=== PATIENT | male | born 1945 | race Caucasian/White ===

== ENCOUNTER 2018-02-15 12:01 | Day surgery (SDC) | payer MEDICARE ==
[2018-02-14 08:44] VITALS: BMI 27.6
[~2018-02-15 12:01] MED LIST: LACTATED RINGERS 1,000 ML IV SCH; LIDOCAINE 1% 20 ML VIAL (10MG/ML) FOR IV START INTRADERMA PRN
[2018-02-15 12:06] VITALS: TEMP 98.3
[2018-02-15] MEDS ORDERED: LACTATED RINGERS 1,000 ML IV ONE (12:07)
[2018-02-15] MEDS ORDERED: ONDANSETRON 4 MG/2 ML VIAL IVP ONE (12:37)
[2018-02-15] MEDS ORDERED: GLYCOPYRROLATE 0.2 MG/ML 2 ML VIAL ONE (12:49)
[2018-02-15] MEDS ORDERED: PROPOFOL 10 MG/ML 20 ML VIAL IV ONE (12:49)
--- NOTE | 2018-02-15 13:20 | P.OP ---
Date of Procedure: 02/15/18 Preoperative Diagnosis: Screening for colon cancer Postoperative Diagnosis: Moderate diverticulosis. Mild radiation proctitis. Procedure(s) Performed: Screening colonoscopy Anesthesia: MAC Surgeon: Solomon Olvera Estimated Blood Loss (ml): 0 Pathology: none sent Condition: stable Disposition: same day Indications for Procedure: Screening for colon cancer Operative Findings: Moderate diverticulosis. Mild radiation proctitis. Description of Procedure: With the patient in the left lateral position rectal digital examination was normal. There no palpable masses. Prostate was absent. The video colonoscope was inserted transanally and advanced all the way to the cecum which was entered without visualized as was the ileocecal valve and appendiceal orifice. The mucosa were thoroughly examined. Her graft findings as above. No polyps neoplasms or any mucosal other abnormalities were noted. The patient tolerated procedure well without any evident complication. Recommendation may resume his normal diet. At his age I don't think a follow- up screening colonoscopy is indicated.
[2018-02-15 13:47] VITALS: BP 130/77; PULSE 78; RESP 16
== END 2018-02-15 13:57 | disposition home or self-care (01) ==
LOC: ORWHC2ENDO 12:01
PROVIDERS: ATTEND Surgery
DX: K57.30 Diverticulosis of large intestine without perforation or abscess without bleeding (principal); Z90.79 Acquired absence of other genital organ(s); Z85.46 Personal history of malignant neoplasm of prostate; K62.7 Radiation proctitis; M19.90 Unspecified osteoarthritis, unspecified site; Z80.0 Family history of malignant neoplasm of digestive organs; Z79.899 Other long term (current) drug therapy
CPT/HCPCS: 45378; J2405; J2704

== ENCOUNTER → 2019-10-16 | Outpatient (CLI) | payer MEDICARE ==
--- NOTE | 2019-10-16 12:03 | ECHOS ---
STRESS ECHOCARDIOGRAM DATE OF SERVICE: 10/16/2019 INDICATIONS: Chest pain. MEDICATIONS: BASELINE HEART RATE: 61 BASELINE BLOOD PRESSURE: 124/61 MAXIMUM HEART RATE: 136 MAXIMUM BLOOD PRESSURE: 173/96 85% MPHR: 122 100% MPHR: 144 METS: 8.7 MAXIMUM STAGE REACHED: III TOTAL EXERCISE TIME: 7 minutes 15 seconds CLINICAL INFORMATION: Baseline rhythm is sinus mechanism, rate 61, RSR prime. Baseline blood pressure 124/61 mmHg. Patient exercised on Rory protocol for 7 minute 15 seconds reaching a peak rate 136 beats per minute which is equal to 94% maximum predicted heart rate. Peak blood pressure 173/96 mmHg. Test was terminated secondary to fatigue. There was no chest pain. Electrocardiograph monitoring revealed rare PVCs in recovery. There was no evidence of diagnostic ischemic ST deviation. Baseline echocardiogram revealed normal wall thickening and motion. At peak exercise, there was normal wall motion augmentation with no hypokinesis or dyskinesis. CONCLUSION: 1. Good exercise tolerance with normal electrocardiograph response to exercise. 2. Normal stress echocardiogram with no evidence of stress induced ischemia. MMODL / IJN: [id number] /
== END | disposition home or self-care (01) ==
LOC: RADNMMAIN 09:17
PROVIDERS: ATTEND Internal Medicine
DX: R07.89 Other chest pain (principal); R00.2 Palpitations
CPT/HCPCS: 93351

== ENCOUNTER → 2022-04-24 | Outpatient (CLI) | payer MEDICARE ==
--- NOTE | 2022-04-24 09:53 | FL ---
EXAMINATION TYPE: FL barium swallow DATE OF EXAM: 04/24/2022 CLINICAL HISTORY: History of dysphasia and reflux, epigastric pain. Some improvement on reflux medica tion. History of seasonal allergies. TECHNIQUE: A double contrast esophagram is performed utilizing air and barium. A total of 23 second s of fluoroscopic time was utilized during procedure and 33 images obtained COMPARISON: None FINDINGS: The esophagus shows normal motility and emptying into the stomach. No proximal diverticulum . No evidence of fixed hiatal hernia or stricture noted. No significant gastroesophageal reflux was seen during real time performance of this study. IMPRESSION: No significant abnormality is seen to account for patient's symptoms.
== END | disposition home or self-care (01) ==
LOC: RADUSWWP 08:49
PROVIDERS: ATTEND Internal Medicine
DX: R13.10 Dysphagia, unspecified (principal)
CPT/HCPCS: 74220

== ENCOUNTER 2022-06-25 16:20 | Emergency (ER) | payer MEDICARE ==
[2022-06-25] MEDS ORDERED: RABIES IMMUNE GLOB 300 UNIT/ML 1 ML VIAL IM ONE (17:04)
--- NOTE | 2022-06-25 17:08 | ED ---
General Adult HPI - General Chief complaint: Animal Bite Stated complaint: Bat Bite Time Seen by Provider: 06/25/22 16:43 Source: patient Mode of arrival: ambulatory Limitations: no limitations - History of Present Illness Initial comments: Patient is a 68-year-old male presenting with chief complaint of bat bite. Patient states that 3 days ago he was getting a bat out of his [employer], when he was carrying the bat and outside inside a bag, he felt a bite to his right third finger. Patient has never been vaccinated against rabies. He received a tetan us shot a few days ago. No redness, swelling, warmth, tenderness, discharge, fever, chills, red streaking up the finger, pain or loss of range of motion, numbness, tingling, nausea, vomiting, abdominal pain, chest pain, shortness of breath, headache, vision or hearing changes. - Related Data Home Medications Medication Instructions Recorded Confirmed Meloxicam [Mobic] 7.5 mg PO DAILY 07/29/15 02/14/18 Naproxen Sodium [Aleve] 220 mg PO Q12HR 07/29/15 02/14/18 Allergies Allergy/AdvReac Type Severity Reaction Status Date / Time No Known Allergies Allergy Verified 06/25/22 16:40 Review of Systems ROS Statement: Those systems with pertinent positive or pertinent negative responses have been documented in the HPI. ROS Other: All systems not noted in ROS Statement are negative. Past Medical History Past Medical History: Cancer, Osteoarthritis (OA) Additional Past Medical History / Comment(s): prostate cancer 2013 with sx, sinus/allergies, History of Any Multi-Drug Resistant Organisms: None Reported Past Surgical History: Back Surgery, Hernia Repair, Joint Replacement, Prostate Surgery Additional Past Surgical History / Comment(s): 2013 Robotic radical prostatectomy, BILAT TKA, surg. on bilateral great toes-bunionectomy with pins, inguinal hernia repair in his 20's-unsure which side., SINUS SX Past Anesthesia/Blood Transfusion Reactions: Postoperative Nausea & Vomiting (PONV) Additional Past Anesthesia/Blood Transfusion Reaction / Comment(s): Pt has never recieved blood. Past Psychological History: No Psychological Hx Reported Smoking Status: Never smoker Past Alcohol Use History: Rare Past Drug Use History: None Reported - Past Family History Mother Family Medical History: No Reported History General Exam Limitations: no limitations General appearance: alert, in no apparent distress Head exam: Present: atraumatic, normocephalic, normal inspection Eye exam: Present: normal appearance, EOMI. Absent: scleral icterus, periorbital swelling Neck exam: Present: normal inspection Right Hand Wrist exam: Present: normal inspection, full ROM. Absent: tenderness, swelling, erythema Neuro motor exam: Present: wrist extension intact, fingers 2-5 abduction intact Neurosensory exam: Present: radial nerve intact, ulnar nerve intact, median nerve intact Vascular: Absent: vascular compromise Neurological exam: Present: alert, oriented X3, CN II-XII intact Psychiatric exam: Present: normal affect, normal mood Skin exam: Present: warm, dry, intact, normal color. Absent: rash Course Vital Signs 06/25/22 06/25/22 16:35 18:56 Temperature 97.8 F 98.3 F Pulse Rate 67 65 Respiratory 18 16 Rate Blood Pressure 133/82 137/89 O2 Sat by Pulse 98 97 Oximetry Medical Decision Making - Medical Decision Making Patient is a 77-year-old male presenting with chief complaint of bat bite. Patient states that 3 days ago that rendered his right third finger when he was trying to remove it from his [employer]. Patient has never been vaccinated against rabies, as tetanus is up-to-date. He is not complaining of any pain, redness, swelling, warmth, fever, chills. On physical examination patient has full range of motion of the finger, normal inspection, normal sensation. Patient is given rabies vaccination and immunoglobulin. Provided with prescription for vaccination on days 3, 7, and 14. Follow-up with PCP. Report back to ER with any new or worsening symptoms. Discussed return parameters and answered all questions. Patient conveyed verbal understanding and agreed to the plan. I discussed this case in detail with my attending Dr. Hopkins Disposition Clinical Impression: Bat bite of finger Disposition: HOME SELF-CARE Condition: Good Instructions (If sedation given, give patient instructions): Rabies Vaccine (By injection), Rabies Immune Globulin (By injection), Animal Bite (ED), Rabies (ED) Additional Instructions: Follow-up with PCP. Report back to ER with any new or worsening symptoms. You will receive vaccination on day 0 (today), 3, 7, and 14. The remainder of vaccinations will be scheduled through [facility], unless vaccination day falls on a weekend in which case you will report back to the ER for your dose. Is patient prescribed a controlled substance at d/c from ED?: No Referrals: None,Stated [Primary Care Provider] - 1-2 days Time of Disposition: 17:08
[2022-06-25] MEDS ORDERED: RABIES VACCINE (PCEC) 2.5 UNIT KIT IM ONE (17:15)
[2022-06-25] MEDS ORDERED: RABIES IMMUNE GLOB 300 UNIT/ML 5 ML VIAL IM ONE (17:15)
[2022-06-25 18:58] VITALS: BP 137/89; PULSE 65; RESP 16; TEMP 98.3
== END 2022-06-25 18:57 | disposition home or self-care (01) ==
LOC: EC 16:20
DX: S61.250A Open bite of right index finger without damage to nail, initial encounter (principal); Z23 Encounter for immunization; W55.81XA Bitten by other mammals, initial encounter
CPT/HCPCS: 90375; 90471; 90675; 96372; 99283

== ENCOUNTER → 2023-02-10 | Outpatient (CLI) | payer MEDICARE ==
[2023-02-10 14:23] LABS: ALT 20 U/L (4-49); AST 23 U/L (17-59); African American GFR (CKD) 83 (>60 ml/min/1.73 sqM); Albumin 3.8 g/dL (3.5-5.0); Albumin/Globulin Ratio 1.5; Alkaline Phosphatase 74 U/L (38-126); Anion Gap 5 mmol/L; Blood Urea Nitrogen 19 mg/dL (9-20); Calcium 9.2 mg/dL (8.4-10.2); Carbon Dioxide 29 mmol/L (22-30); Chloride 104 mmol/L (98-107); Globulin 2.6 g/dL; Glucose 108 mg/dL (74-99); Non-African American GFR(CKD) 72 (>60 ml/min/1.73 sqM); Potassium 4.6 mmol/L (3.5-5.1); Sodium 138 mmol/L (137-145); Total Bilirubin 0.6 mg/dL (0.2-1.3); Total Protein 6.4 g/dL (6.3-8.2)
--- NOTE | 2023-02-10 15:30 | CT ---
EXAMINATION TYPE: CT abdomen pelvis w con DATE OF EXAM: 02/10/2023 COMPARISON: Prior CT August 28, 2016 HISTORY: chronic RLQ pain Stat hold and call CT DLP: 1074 mGycm, Automated Exposure Control for Dose Reduction was Utilized. CONTRAST: CT scan of the abdomen and pelvis is performed with oral and with IV Contrast, patient injected with 100 mL of Isovue 300. FINDINGS: LUNG BASES: No significant abnormality is appreciated. LIVER/GB: No significant abnormality is appreciated. PANCREAS: No significant abnormality is seen. SPLEEN: No significant abnormality is seen. ADRENALS: No significant abnormality is seen. KIDNEYS: Roughly 3-5 small scattered bilateral renal calculi. Symmetric cortical medullary uptake and excretion without hydronephrosis seen bilaterally. Cortical thinning bilaterally with a few tiny thi n-walled cysts. BOWEL: Wandering CT abdomen is present extending into the left lower quadrant axial image 48. Oral co ntrast does not reach colonic level making evaluation of distal bowel suboptimal. No suspicious small or large bowel dilatation. Prominent sigmoid colonic diverticulosis without convincing CT evidence f or acute diverticulitis. PROSTATE/SEMINAL VESICLES: Prostate gland not well seen and suspected surgically absent. LYMPH NODES: No greater than 1cm abdominal or pelvic lymph nodes are appreciated. OSSEOUS STRUCTURES: Grade 1 anterolisthesis L4 on L5. Mmmh-xm-emuwjobl multilevel disc space narrowin g. Slight scoliosis. Moderate to severe axial joint space loss in both hips. OTHER: Ectatic abdominal aorta with mild calcified peripheral plaque. IMPRESSION: No bowel obstruction. No acute findings clearly seen to account for patient's symptoms. W andering cecum on current study. Bilateral small renal calculi without hydronephrosis or obstructing ureteral calculi clearly seen bilaterally.
[2023-02-11 01:18] LABS: Basophils # (A) 0.05 X 10*3/uL (0.00-0.10); Basophils % (A) 0.9 %; Eosinophils # (A) 0.04 X 10*3/uL (0.04-0.35); Eosinophils % (A) 0.7 %; HCT 43.3 % (39.6-50.0); Immature Grans, Automated 0.3 %; Lymphocytes # (A) 0.62 X 10*3/uL (0.90-5.00); Lymphocytes % (A) 10.7 %; MCH 31.3 pg (27.0-32.0); MCHC 32.3 g/dL (32.0-37.0); MCV 96.7 fL (80.0-97.0); Mean Platelet Volume 9.4 fL (9.5-12.2); Monocytes # (A) 0.22 X 10*3/uL (0.20-1.00); Monocytes % (A) 3.8 %; NRBC Per 100 WBC 0 /100 WBCS (0.0-0.0); Neutrophils # (A) 4.84 X 10*3/uL (1.80-7.70); Neutrophils % (A) 83.6 %; Platelet Count 222 X 10*3/uL (140-440); RBC 4.48 X 10*6/uL (4.40-5.60); RDW 13.5 % (11.5-14.5); WBC 5.79 X 10*3/uL (4.50-10.00)
[2023-02-11 04:52] LABS: Chol/HDL Ratio 4.15 Ratio; LDL Cholesterol,Calculated 105.1 mg/dL (0.0-131.0); VLDL Calculation 19.44 mg/dL (5.00-40.00)
== END | disposition home or self-care (01) ==
LOC: RADCTMAIN 12:50
PROVIDERS: ATTEND Internal Medicine
DX: N20.0 Calculus of kidney (principal)
CPT/HCPCS: 80061; 80053; 85025; 74177; 36415; Q9967

== ENCOUNTER → 2023-03-10 | Outpatient (CLI) | payer MEDICARE ==
[2023-03-10 11:13] LABS: Bilirubin, Conjugated <0.20 mg/dL (0.20-0.40); Lipase 25 U/L (14-60); PSA Annual Screen <0.014 ng/mL (0.000-4.000)
== END | disposition home or self-care (01) ==
LOC: LABWHC1 08:00
PROVIDERS: ATTEND Internal Medicine
DX: Z12.5 Encounter for screening for malignant neoplasm of prostate (principal); R10.31 Right lower quadrant pain; C61 Malignant neoplasm of prostate
CPT/HCPCS: 84443; 82248; 83690; 36415; G0103

== ENCOUNTER → 2023-06-07 | Outpatient (CLI) | payer MEDICARE ==
--- NOTE | 2023-06-07 11:12 | CT ---
EXAMINATION TYPE: CT shoulder LT wo con DATE OF EXAM: 06/07/2023 COMPARISON: None HISTORY: 78-year-old male M25.512, Left shoulder pain, no injury. TECHNIQUE: Contiguous axial scanning of the left shoulder without IV contrast. Coronal and sagittal r econstructions performed. 3-D reconstructions generated on a dedicated independent workstation. CT DLP: 287.9 mGycm Automated exposure control for dose reduction was used. FINDINGS: Diffuse osteopenia. There is moderate degenerative change of the acromion clavicular joint with promi nent marginal spurring and capsular hypertrophy. Some inferior spurring encroaches onto the subacromi al space. There is end-stage, [id number] degenerative change of the glenohumeral joint. Remodeling of the gle noid results in mild to moderate overall thinning of the glenoid bone stock. There is also resultant 15 degrees of glenoid retroversion secondary to the bony remodeling. Preserved bulk of the rotator cuff musculature. No acute fracture is seen. No sizable joint effusion or bursal effusion. IMPRESSION: 1. END-STAGE BONE ON BONE GLENOHUMERAL JOINT OA. MILD TO MODERATE THINNING OF GLENOID BONE STOCK AND RESULTANT 15 DEGREES OF GLENOID RETROVERSION. 2. MODERATE AC JOINT OA WITH INFERIOR SPURRING THAT MAY CONTRIBUTE TO SUBACROMIAL IMPINGEMENT.
== END | disposition home or self-care (01) ==
LOC: RADCTMAIN 08:25
PROVIDERS: ATTEND Orthopaedic Surgery Sports Medicine
DX: M19.012 Primary osteoarthritis, left shoulder (principal)

== ENCOUNTER → 2023-06-28 | Outpatient (CLI) | payer MEDICARE ==
--- NOTE | 2023-06-29 13:06 | CA ---
Transthoracic Echo Report Name: Salo Mercado Age: 78 Gender: M : 1945 Exam Date: 06/28/2023 16:58 Exam Location: [place] [facility] Ht (in): 70 Wt (lb): 174 Ordering Physician: Jah Herrera MD Attending/Referring Phys: Booster Pump Oiler Elizabet Davis RDCS Procedure CPT: Indications: M79.89 OTHER SPECIFIED SOFT TISSUE DISORDERS Cardiac Hx: Technical Quality: Fair Contrast 1: Total Dose (mL): Contrast 2: Total Dose (mL): MEASUREMENTS (Male / Female) Normal Values 2D ECHO LV Diastolic Diameter PLAX 4.5 cm 4.2 - 5.9 / 3.9 - 5.3 cm LV Systolic Diameter PLAX 3.0 cm IVS Diastolic Thickness 0.9 cm 0.6 - 1.0 / 0.6 - 0.9 cm LVPW Diastolic Thickness 1.2 cm 0.6 - 1.0 / 0.6 - 0.9 cm LV Relative Wall Thickness 0.5 RV Internal Dim ED PLAX 3.6 cm LA Volume 62.4 cm??? 18 - 58 / 22 - 52 cm??? M-MODE Aortic Root Diameter MM 3.8 cm LA Systolic Diameter MM 3.8 cm LA Ao Ratio MM 1.0 AV Cusp Separation MM 2.3 cm DOPPLER AV Peak Velocity 140.4 cm/s AV Peak Gradient 7.9 mmHg AV Mean Velocity 106.8 cm/s AV Mean Gradient 4.9 mmHg AV Velocity Time Integral 31.7 cm LVOT Peak Velocity 114.0 cm/s LVOT Peak Gradient 5.2 mmHg LVOT Velocity Time Integral 23.1 cm MV Area PHT 2.8 cm??? Mitral E Point Velocity 53.6 cm/s Mitral A Point Velocity 102.8 cm/s Mitral E to A Ratio 0.5 MV Deceleration Time 269.4 ms MV E' Velocity 5.1 cm/s Mitral E to MV E' Ratio 10.6 TR Peak Velocity 217.4 cm/s TR Peak Gradient 18.9 mmHg Right Ventricular Systolic Press 23.7 mmHg FINDINGS Left Ventricle Mildly increased left ventricular wall thickness. Left ventricular cavity size normal. Normal left ventricular systolic function with no obvious regional wall motion abnormalities. Left ventricular ejection fraction is estimated at 55-60 %. Right Ventricle Mild right ventricular dilatation. Right ventricular systolic pressure within normal limits. Right Atrium Normal right atrial size. Left Atrium Mildly increased left atrial volume. Interatrial septal aneurysm. Mitral Valve Structurally normal mitral valve. Mitral valve thickened. Mild mitral annular calcification. Mild mitral regurgitation. Aortic Valve Trileaflet aortic valve. No aortic valve stenosis or regurgitation. Tricuspid Valve Structurally normal tricuspid valve. Mild tricuspid regurgitation. Pulmonic Valve Structurally normal pulmonic valve. Pericardium No pericardial effusion. Aorta Normal size aortic root and proximal ascending aorta. CONCLUSIONS 1. Normal left ventricle size and systolic function 2. Mild mitral and tricuspid regurgitation Previewed by: Dr. Caden Smith MD (Electronically Signed) Final Date: 29 June 2023 13:06
== END | disposition home or self-care (01) ==
LOC: RADECHMAIN 16:52
PROVIDERS: ATTEND Internal Medicine
DX: I08.1 Rheumatic disorders of both mitral and tricuspid valves (principal); M79.89 Other specified soft tissue disorders
CPT/HCPCS: 93306

== ENCOUNTER → 2023-08-06 | Outpatient (CLI) | payer MEDICARE ==
--- NOTE | 2023-08-06 19:20 | CT ---
EXAMINATION TYPE: CT shoulder RT wo con CT DLP: 337.20 mGycm, Automated exposure control for dose reduction was used. DATE OF EXAM: 08/06/2023 6:29 PM COMPARISON: 06/07/2023 CLINICAL INDICATION:Male, 78 years old with history of PAIN IN R SHOULDER M25.511; PHH, Pre-Op Rt xi ulder arthritis TECHNIQUE: Axial images were obtained of the CT shoulder RT wo con, Additional coronal and sagittal r eformatted images and soft tissue and bone window were obtained for review. 3-D reconstruction was cr eated on a separate workstation. Contrast used: mL of , (None if empty) Oral contrast used: (None if empty) FINDINGS: Degeneration changes of the right shoulder with [id number] articulation with osteophyte f ormation. There is osteophyte formation of the glenoid and humeral head. There is narrowing of the ac romial humeral interval measuring up to 4 mm in thickness. And minimal subchondral cystic change of t he glenoid There is no evidence of fracture, subluxation, or dislocation. No significant soft tissue swelling or joint effusion is identified. No focal muscular atrophy or edema is identified. No radio paque foreign body identified. Visualized portions of the chest are within normal limits. IMPRESSION: End-stage right shoulder osteoporosis arthritis changes with [id number] articulation.
== END | disposition home or self-care (01) ==
LOC: RADCTMAIN 18:05
PROVIDERS: ATTEND Orthopaedic Surgery Sports Medicine
DX: M19.011 Primary osteoarthritis, right shoulder (principal); S40.011D Contusion of right shoulder, subsequent encounter; M81.0 Age-related osteoporosis without current pathological fracture; X58.XXXD Exposure to other specified factors, subsequent encounter

== ENCOUNTER → 2023-08-26 | Outpatient (CLI) | payer MEDICARE ==
[2023-08-26 12:06] LABS: Partial Thromboplastin Time 24.8 sec (22.0-30.0)
[2023-08-26 13:46] LABS: INR 0.9 (<1.2); Prothrombin Time 10.2 sec (10.0-12.5)
[2023-08-26 15:44] LABS: Appearance,Urine Clear (Clear); Bilirubin,Urine Negative (Negative); Blood,Urine Negative (Negative); Color,Urine Yellow (Yellow); Ketones,Urine Negative (Negative); Nitrite,Urine Negative (Negative); Specific Gravity,Urine 1.018 (1.001-1.030); Urobilinogen,Urine 0.2 E.U./DL
[2023-08-26 16:47] LABS: HCT 43.2 % (39.6-50.0); HGB 13.7 g/dL (13.0-17.0); MCH 29.9 pg (27.0-32.0); MCHC 31.7 g/dL (32.0-37.0); MCV 94.3 FL (80.0-97.0); Mean Platelet Volume 10.1 FL (9.5-12.2); NRBC Per 100 WBC 0 X 10*3/uL (0.00-0.01); Platelet Count 306 X 10*3/uL (140-440); RBC 4.58 X 10*6/uL (4.40-5.60); RDW 13.3 % (11.5-14.5); WBC 6.38 X 10*3/uL (4.50-10.00)
[2023-08-26 21:11] LABS: ALT 15 U/L (10-49); AST 17 U/L (14-35); Albumin/Globulin Ratio 1.82 Ratio (1.60-3.17); Alkaline Phosphatase 97 U/L (41-126); BUN/Creat Ratio 18.46 Ratio (12.00-20.00); Carbon Dioxide 25.7 mmol/L (21.6-31.8); Chloride 104 mmol/L (96-109); Globulin 2.2 g/dL (1.6-3.3); Glucose 103 mg/dL (70-110); Sodium 143 mmol/L (135-145); Total Bilirubin 0.3 mg/dL (0.3-1.2); Total Protein 6.2 g/dL (6.2-8.2)
== END | disposition home or self-care (01) ==
LOC: LABPAT 10:03
PROVIDERS: ATTEND Orthopaedic Surgery Sports Medicine
DX: Z01.812 Encounter for preprocedural laboratory examination (principal); M19.011 Primary osteoarthritis, right shoulder
CPT/HCPCS: 36415; 80053; 81003; 85027; 85610; 85730; 87070

== ENCOUNTER 2023-09-16 06:47 | Observation (INO) | payer MEDICARE ==
[2023-09-07 11:53] VITALS: BMI 24.5
[~2023-09-16 06:47] MED LIST changes: +ACETAMINOPHEN TAB 500 MG TAB PO PRN; +GABAPENTIN 300 MG CAP PO PRN; -LACTATED RINGERS 1,000 ML IV SCH; -LIDOCAINE 1% 20 ML VIAL (10MG/ML) FOR IV START INTRADERMA PRN; +MELOXICAM 7.5 MG TAB PO PRN; +ONDANSETRON 4 MG/2 ML VIAL IVP PRN; +TRANEXAMIC 1,000 MG/100ML-NACL 1,000 MG in SALINE 1 100ML.BAG IVPB PRN
[2023-09-16] MEDS ORDERED: ONDANSETRON 4 MG/2 ML VIAL IVP ONE (07:16)
[2023-09-16] MEDS ORDERED: HYDROmorphone 0.5 MG/0.5 ML SYRINGE IVP PRN ×3 (07:16→08:20)
[2023-09-16] MEDS ORDERED: ONDANSETRON 4 MG/2 ML VIAL IVP PRN (08:20)
[2023-09-16] MEDS ORDERED: diphenhydrAMINE 25 MG CAP PO PRN (08:20)
[2023-09-16] MEDS: LACTATED RINGERS 1,000 ML IV SCH ×3 (08:30→20:02)
[2023-09-16] MEDS ORDERED: MIDAZOLAM 2 MG/2 ML VIAL IVP ONE (08:38)
[2023-09-16] MEDS ORDERED: fentaNYL (PF) 50 MCG/ML 2 ML AMP IVP ONE (08:38)
[2023-09-16] MEDS ORDERED: ROPIVACAINE 5 MG/ML 30 ML VIAL ONE (09:10)
[2023-09-16] MEDS ORDERED: SUCCINYLCHOLINE CHLORIDE 200 MG/10 ML VIAL IV ONE (09:10)
[2023-09-16] MEDS ORDERED: ePHEDrine 50 MG/ML 1 ML VIAL ONE (09:10)
[2023-09-16] MEDS ORDERED: fentaNYL (PF) 50 MCG/ML 2 ML AMP ONE (09:10)
[2023-09-16] MEDS ORDERED: GLYCOPYRROLATE 0.2 MG/ML 2 ML VIAL ONE (09:10)
[2023-09-16] MEDS ORDERED: LIDOCAINE 1% INJ 10MG/ML (20 ML MDV) ONE (09:10)
[2023-09-16] MEDS ORDERED: ROCURONIUM 10 MG/ML (5 ML VIAL) IV ONE (09:10)
[2023-09-16] MEDS ORDERED: PROPOFOL 10 MG/ML 20 ML VIAL IV ONE (09:10)
[2023-09-16] MEDS ORDERED: NEOSTIGMINE 1 MG/ML 10 ML VIAL ONE (09:10)
[2023-09-16] MEDS ORDERED: VANCOMYCIN 1,000 MG VIAL MISCELLANE ONE (09:45)
[2023-09-16] MEDS ORDERED: ceFAZolin 1,000 MG in SODIUM CHLORIDE 0.9% 1,000 ML IRRIGATION ONE (09:46)
[2023-09-16] MEDS ORDERED: LACTATED RINGERS 1,000 ML IV ONE (09:58)
--- NOTE | 2023-09-16 11:47 | OP ---
OPERATIVE REPORT DATE OF SERVICE : 09/16/2023 COMPLIANCE MANAGER: Meño Sanchez PA-C. PREOPERATIVE DIAGNOSIS: Right shoulder osteoarthrosis. POSTOPERATIVE DIAGNOSIS: Right shoulder osteoarthrosis. PROCEDURE PERFORMED: Right reverse total shoulder arthroplasty. ANESTHESIA: General endotracheal. ESTIMATED BLOOD LOSS: 100 mL. DRAINS: None. COMPLICATIONS: None apparent. DISPOSITION: Postanesthesia care unit. INDICATIONS: Mr. Mercado is a very pleasant 78-year-old male with longstanding right shoulder pain. Workup including x-rays, CT scan revealed advanced osteoarthrosis of the right shoulder. At this point, it is felt that he has failed conservative management, and he would like to proceed with operative intervention. Risks of procedure were discussed with him in detail. These risks include, but are not limited to, risk of infection, nerve damage, bleeding, pain, instability in the shoulder, loosening of the implants, and deep infection. There is also small risk of deep vein thrombosis which could lead to fatal pulmonary embolism. The patient understood these risks. All his questions with regard to risks of the procedure were answered to his satisfaction. An appropriate informed consent was obtained. DESCRIPTION OF PROCEDURE: The patient was identified in preoperative holding area. Surgical site was marked by both the patient and myself. He was given 2 g of Ancef IV for prophylactic purposes. He was then transported to the operative suite, placed supine on the operating room table. General anesthetic was then administered and dosed per the anesthesia department without apparent complication. An examination under anesthesia of the right shoulder was then performed. He had passive elevation to 140 degrees. The external rotation of the side was 30 degrees. The patient was then placed in the beach chair position, well padded in preparation for surgery. Great care was taken to ensure that his neck was in neutral alignment, well- padded and maintained that way throughout the operative procedure. Great care was also taken to ensure that his legs were appropriately padded as well. The patient's right upper extremity was then prepped and draped in usual sterile fashion. Standard surgical pause was undertaken to ensure that we were operating the correct site and that appropriate preoperative antibiotics had been given. All staff in room were in agreement, and we proceeded. The acromion AC joint clavicle and coracoid were marked with a surgical pen. A planned incision starting at the level of clavicle and extending distally over the deltopectoral interval approximately 1 cm lateral to the coracoid was marked with a surgical pen. The incision was then made with a 10-blade scalpel. Dissection was carried down sharply to the deltoid fascia. The deltopectoral interval was then identified at the level of clavicle. A small band retractor was then placed onto the proximal deltoid. I then released the deltoid fascia on the lateral aspect of the cephalic vein. The vein was preserved and left in its bed medially. The cephalic vein was protected throughout the entire case. I then identified the clavipectoral fascia. This was incised proximally to the level of the coracoacromial ligament. The coracoacromial ligament was then left intact. I then used my finger to spread the interval between the conjoint tendon and the subscapularis. I felt for the axillary nerve which was readily palpable. Then cleared the subacromial and subdeltoid spaces of bursal and scar tissue. I then utilized a brown retractor to hold the deltoid and expose the humeral head. I then proceeded to release the subscapularis in the anterior inferior shoulder capsule. The rotator cuff was inspected. He had a large tear of the supraspinatus and anterior infraspinatus. The rotator interval was then identified. The course of the biceps tendon was also identified. I then released the rotator interval. This was released to the base of the coracoid and then out laterally. Subscapularis and the capsule release were released intertendinously. The subscapularis and capsule were released and extended distally in a lazy-S fashion approximately 1 cm medial to the biceps tendon. I then continued to release the capsule along the inferior neck in a vertical fashion. This was done to approximately at the 6 o'clock position. Great care was taken to ensure that the capsule was always visualized as it was released to avoid injuring the axillary nerve. I then brought a Flannery instructor weaving with the arm externally rotated and abducted. I continued to release the capsule inferomedially to approximately at the 4 o'clock position. The inferior osteophytes were now removed as well. This was done with a rongeur. I then proceeded with preparation of the proximal humerus. I removed all the goat's owen osteophytes. I then removed the subchondral plate from the superior aspect of the humeral head utilizing a large rongeur. I then used a starting reamer to gain access to the humeral canal. This was approximately 1 cm medial to the rotator cuff insertion 1 cm posterior to the bicipital groove. I then prepared the humeral canal with hand reaming. I started with a 6-mm reamer and incrementally increased until firm resistance was encountered at 15 mm. The reamer handle was then left in place. Then utilized a humeral resection guide. This was set at 30 degrees of retrotorsion. The cutting block was then set approximately 1 mm above the rotator cuff insertion. I then proceeded to osteotomize the humeral head utilizing an oscillating saw. I removed the resection guide and then completed the osteotomy. I then proceeded with trial stem placement. The trial size 15 was then broached into the canal starting with an 8 mm broach and incrementally increasing up to the 15 mm broach. The 14 mm trial stem was then left in place. I then made a decision at this point to proceed with a reverse shoulder arthroplasty due to the significant rotator cuff tearing. At this point, I did release the biceps tendon. This was tenotomized at the level of the superior labrum. I did tenodesed the biceps tendon into the bicipital groove with an 0 Vicryl interrupted sutures. This was done to the surrounding soft tissue of the groove. I then utilized a bone hook to pull the humerus out laterally. I then inspected the joint for any loose bodies. A Bhattman retractor was then placed on the posterior glenoid rim. The arm was then placed in approximately 80 degrees of abduction and in slight flexion on a Flannery stand. I then proceeded to remove the hypertrophic labrum to definitively identify the actual glenoid. I then utilized the mini plate guide. Starting pin was then placed in the center of the glenoid in approximately 10 degrees of inferior tilt. He had significant posterior retroversion of the glenoid. Great care was taken to ensure the starting pin was placed down the center of the glenoid. I then proceeded to ream the glenoid with a mini base plate reamer. I did preferentially take more anterior glenoid. As minimal reaming was done as possible to preserve as much subchondral bone as possible with the reaming. After the glenoid was reamed, I did remove peripheral osteophytes around the glenoid utilizing a rongeur. I then utilized the small offset base plate guide. This seemed to fit very nicely. I then had the product support sales representative open a [employer] mini base plate with a small posterior offset. This was then impacted onto the real glenoid. The starting pin was then removed. I then measured the length and a 30 mm central screw was placed. The screw had an excellent purchase in bone. I was able to rotate the scapula through the screwdriver when the screw was firmly seated. I then proceeded with placing the peripheral locking screws. The inferior screw was 20 mm. The anterior screw was a 15 mm screw and the superior screw was a 20 mm screw. All 3 of these screws had excellent purchase in bone and were firmly seated into the base plate. I then had the product support sales representative open a 36-mm glenosphere. I slightly offset it inferiorly. The Maldonado taper was dried and the real glenosphere was impacted onto the real base plate. I then proceeded with trial. I placed a standard tray and a standard poly trial. It was a mildly difficult reduction. It was very stable. There was no impingement noted. I took it through a full range of motion with no impingement noted. I then carefully redislocated the shoulder. I made a decision to proceed with the standard tray and standard polyethylene. I then had the product support sales representative open a [employer] mini 15 mm stem, a standard tray and a standard polyethylene for a 36-mm glenosphere. The real stem was then placed in approximately 30 degrees of retrotorsion. The Maldonado taper was dried and the tray and polyethylene were then impacted on the dried Maldonado taper. At this point, the wound was thoroughly irrigated with sterile saline solution with antibiotic added. This was done via pulse lavage. I then placed some Aricept antiseptic solution which was allowed to sit for a few minutes. The shoulder was reduced. Again, it was a mildly difficult reduction. It was very stable. The conjoint tendon did not have any undue tension. I felt for the axillary nerve at this point, it was readily palpable and intact. At this point, we proceeded with closure. Again, the wound was thoroughly irrigated with sterile saline solution and antibiotic added via pulse lavage. I then used the remainder of the IrriSept solution for a few minutes. Approximately 500 mg of vancomycin powder was then placed deep. The deltopectoral interval was then closed with 0 Vicryl interrupted suture. Subcutaneous tissue was irrigated again with sterile saline solution and antibiotic added. The remaining 500 mg of vancomycin powder was then placed subcutaneously. The subcutaneous tissue was then closed with 2-0 Vicryl interrupted suture and the skin was closed with a running 3- 0 Quill suture. Dermabond was applied to the incision. Sterile dressing was then applied and the patient's right upper extremity was placed into a standard sling. All sponge and needle counts were deemed correct prior to closure. The patient tolerated the procedure without apparent complication. He was transferred to recovery room in stable condition. MMZEINA / MELN: [id number] /
--- NOTE | 2023-09-16 13:24 | XR ---
Single view right shoulder. DATE: 09/16/2023. COMPARISON: None available. Clinical history: Postoperative evaluation. IMPRESSION: There is a right reverse shoulder arthroplasty present. There appears to be air and fluid within the subacromial space which is likely related to the history of recent surgery. Some air is also seen surrounding the proximal humerus.
--- NOTE | 2023-09-16 13:34 | P.ANPRN ---
Procedure Note - Anesthesia - Nerve Block Performed Right Interscalene Single Time Out Performed: Yes ([id number]) Date of Procedure: 09/16/23 Procedure Start Time: 08:38 Procedure Stop Time: 08:43 Location of Patient: PreOp Indication: Acute Post-Operative Pain, Requested by Surgeon Specifically requested for management of pain by DrNathalie: Lukas Roldan Sedation Type: Sedate with meaningful contact maintained Preparation: Sterile Prep Position: Supine Catheter: None Needle Types: Pajunk Needle Gauge: 21 Ultrasound used to visualize needle placement: Yes Ultrasound used to observe medication spread: Yes Injectate: 0.5% Ropivacaine (see comment for volume) (30cc) Blood Aspirated: No Pain Paresthesia on Injection Noted: No Resistance on Injection: Normal Image Stored and Saved: Yes Events: Uneventful and Well Tolerated
[2023-09-16] MEDS: HYDROcodone/APAP 10-325MG 1 EACH TAB PO PRN ×2 (17:23→22:09)
[2023-09-16] MEDS: SENNOSIDES-DOCUSATE SODIUM 1 EACH TAB PO PRN (22:10)
--- NOTE | 2023-09-16 22:32 | P.CONS ---
History of Present Illness - Reason for Consult Consult date: 09/16/23 Postoperative medical management - Chief Complaint Right shoulder surgery - History of Present Illness 78-year-old male no significant past medical history Patient coming in for scheduled right shoulder repair due to history of arthritis failed conservative medical management, patient tolerated procedure well no observed immediate postoperative complications currently denies any chest pain or trouble breathing he reports pain is well tolerated denies any fevers or chills nausea or vomiting he tolerated by mouth intake denies any abdominal pain denies any GI bleeding. Patient denies any tobacco smoking illicit drugs or heavy alcohol revLimited exam over the right shoulder due to status postopiew of systems Pertinent positives as noted in HPI. All other systems were reviewed and are n egative on exam Constitutional: No acute distress, conversant, pleasant Eyes: Anicteric sclerae, moist conjunctiva, Pupils equal round reactive to light ENMT: NC/AT Oropharynx clear, no erythema, or exudates Lungs: Clear to auscultation Clear to percussion Normal respiratory effort, no accessory muscle use Cardiovascular: Heart regular in rate and rhythm, No murmurs, gallops, or rubs No peripheral edema Abdominal: Soft Nontender, no guarding, rebound or rigidity Abdomen moving with respiration Normoactive bowel sounds No hepatomegaly, No splenomegaly No palpable mass No abdominal wall hernia noted Extremities: No digital cyanosis No clubbing Pedal pulses intact and symmetrical Radial pulses intact and symmetrical No calf tenderness Psychiatric: Alert and oriented to person, place and time Appropriate affect fair judgement Neuro Muscles Strength 5/5 in all 4 extremities Sensation to light touch grossly present throughout Cranial nerves II-XII grossly intact Lymphatics: no palpable cervical or supraclavicular lymph nodes Past Medical History Past Medical History: Cancer, Osteoarthritis (OA) Additional Past Medical History / Comment(s): Hx prostate cancer in 2013 with surgery. Sinus problems/allergies. IBS. History of Any Multi-Drug Resistant Organisms: None Reported Past Surgical History: Back Surgery, Hernia Repair, Joint Replacement, Orthopedic Surgery, Prostate Surgery Additional Past Surgical History / Comment(s): 2013 Robotic radical prostatectomy, bilateral total knee replacements, bilateral great toe bunionectomy with pins, inguinal hernia repair in his 20's-unsure which side, sinus surgery, total left shoulder replacement. Past Anesthesia/Blood Transfusion Reactions: Postoperative Nausea & Vomiting (PONV) Additional Past Anesthesia/Blood Transfusion Reaction / Comm: Has never received blood. Past Psychological History: No Psychological Hx Reported Additional Psychological History / Comment(s): Pt resides with his spouse of 47yrs. He is normally independent. He uses no assistive device. He drives. Smoking Status: Never smoker Past Alcohol Use History: Rare Past Drug Use History: None Reported - Past Family History Mother Family Medical History: No Reported History Medications and Allergies Home Medications Medication Instructions Recorded Confirmed Type Dicyclomine [Bentyl] 20 mg PO TID PRN 07/05/23 09/16/23 History Prochlorperazine [Compazine] 10 mg PO Q6H PRN 07/05/23 09/16/23 History Docusate [Colace] 100 mg PO BID #60 capsule 07/09/23 09/16/23 Rx HYDROcodone/APAP 7.5-325MG [[place] 1 tab PO Q4-6H PRN 09/07/23 09/16/23 History 7.5-325] Docusate [Colace] 100 mg PO BID #60 capsule 09/16/23 Rx Doxycycline Hyclate 100 mg PO BID #10 tab 09/16/23 Rx Ondansetron [Zofran] 4 mg PO Q8HR PRN #21 tab 09/16/23 Rx Allergies Allergy/AdvReac Type Severity Reaction Status Date / Time No Known Allergies Allergy Verified 09/07/23 10:49 Physical Exam Vitals: Vital Signs Temp Pulse Resp BP BP Pulse Ox 09/16/23 20:48 72 14 09/16/23 20:00 97.9 F 72 14 127/71 95 09/16/23 18:54 99.7 F H 67 18 123/72 93 L 09/16/23 17:00 97.6 F 67 16 130/78 98 09/16/23 14:17 54 L 126/69 97 09/16/23 14:01 54 L 137/66 97 09/16/23 13:46 51 L 130/70 92 L 09/16/23 13:31 97.5 F L 50 L 16 132/72 95 09/16/23 12:45 54 L 16 123/65 98 09/16/23 12:30 46 L 16 119/66 98 09/16/23 12:15 49 L 16 132/71 98 09/16/23 12:00 50 L 16 131/67 98 09/16/23 11:45 49 L 16 132/72 98 09/16/23 11:30 53 L 16 135/73 98 09/16/23 11:15 64 16 123/64 98 09/16/23 11:00 57 L 16 113/58 98 09/16/23 10:44 97 F L 67 16 124/63 98 09/16/23 08:53 60 16 110/67 98 09/16/23 07:40 97.4 F L 69 18 143/79 96 Intake and Output 09/16/23 09/16/23 09/16/23 06:59 14:59 22:59 Intake Total 1151 Output Total 100 Balance 1051 Intake: IV 1151 Output: Estimated Blood Loss 100 Other: # Voids 2 Weight 78 kg Assessment and Plan Assessment: Right shoulder surgery postoperative day 0 Postoperative pain control and DVT prophylaxis per primary surgical team Stable from medical standpoint Check CBC BMP in the morning Thank you for this consultation
[2023-09-16] MEDS: HYDROmorphone 0.5 MG/0.5 ML SYRINGE IVP PRN (23:38)
[2023-09-17] MEDS: HYDROcodone/APAP 10-325MG 1 EACH TAB PO PRN ×2 (01:08→06:53)
[2023-09-17] MEDS: HYDROmorphone 0.5 MG/0.5 ML SYRINGE IVP PRN ×5 (02:31→20:21)
[2023-09-17] MEDS: BACLOFEN 10 MG TAB PO PRN ×3 (03:58→22:54)
[2023-09-17] MEDS: LACTATED RINGERS 1,000 ML IV SCH ×3 (05:28→15:37)
[2023-09-17 08:36] LABS: Basophils # (A) 0.05 X 10*3/uL (0.00-0.10); Basophils % (A) 0.5 %; Eosinophils # (A) 0.04 X 10*3/uL (0.04-0.35); Eosinophils % (A) 0.4 %; HCT 36.6 % (39.6-50.0); HGB 11.8 g/dL (13.0-17.0); Lymphocytes # (A) 1.26 X 10*3/uL (0.90-5.00); Lymphocytes % (A) 13.8 %; MCH 29.5 pg (27.0-32.0); MCHC 32.2 g/dL (32.0-37.0); MCV 91.5 FL (80.0-97.0); Mean Platelet Volume 10.1 FL (9.5-12.2); Monocytes # (A) 0.96 X 10*3/uL (0.20-1.00); Monocytes % (A) 10.5 %; NRBC Per 100 WBC 0 X 10*3/uL (0.00-0.01); Neutrophils # (A) 6.81 X 10*3/uL (1.80-7.70); Neutrophils % (A) 74.5 %; Platelet Count 222 X 10*3/uL (140-440); RDW 13.3 % (11.5-14.5); WBC 9.15 X 10*3/uL (4.50-10.00)
[2023-09-17 09:18] LABS: BUN/Creat Ratio 18.08 Ratio (12.00-20.00); Blood Urea Nitrogen 21.7 mg/dL (9.0-27.0); Carbon Dioxide 25.2 mmol/L (21.6-31.8); Chloride 104 mmol/L (96-109); Glucose 127 mg/dL (70-110); Potassium 4.5 mmol/L (3.5-5.5); Sodium 139 mmol/L (135-145)
[2023-09-17] MEDS ORDERED: DICYCLOMINE 20 MG TAB PO PRN (11:42)
[2023-09-17] MEDS ORDERED: oxyCODONE-APAP 7.5-325MG 1 EACH TAB PO PRN ×2 (12:28)
--- NOTE | 2023-09-17 13:51 | P.DS ---
Providers Date of admission: 09/17/23 07:31 Expected date of discharge: 09/17/23 Attending physician: Lukas Roldan Consults: 09/16/23 08:20 Consult Physician Routine Consulting Provider: Carlota Garza Consult Reason/Comments: post op medical management Do you want consulting provider notified?: Yes Primary care physician: Jah Herrera MD - Discharge Diagnosis(es) (1) Primary osteoarthritis, right shoulder Patient was admitted to the OR on 09/16/23 to undergo a reverse right total shoulder arthroplasty. He had failed conservative measures as an outpatient and desired to proceed with elective surgery after given informed consent. He underwent the above procedure which he tolerated well without complication. Postoperative hospital course has remained without complication. On day of discharge he is afebrile, vital signs stable, labs within acceptable ranges, tolerating by mouth meds and diet, voiding without difficulty, positive flatus, denies abdominal pain or calf pain, pain is controlled on oral pain medication and has no new complaints. Wound is benign, neurovascular status is intact, calf is soft and nontender, abdomen soft and nontender. Review of systems is negative for numbness, tingling, fever, chills, chest pain, shortness of breath, nausea, vomiting, dizziness, headaches, slurred speech or other. Current Visit: Yes Status: Acute Priority: Medium Procedures: Right reverse TSA Patient Condition at Discharge: Good Plan - Discharge Summary Discharge Rx Participant: No New Discharge Prescriptions: New Cyclobenzaprine [Flexeril] 5 mg PO TID PRN #21 tab PRN Reason: Spasms Docusate [Colace] 100 mg PO BID #60 capsule Doxycycline Hyclate 100 mg PO BID #10 tab Ondansetron [Zofran] 4 mg PO Q8HR PRN #21 tab PRN Reason: Nausea oxyCODONE-APAP 7.5-325MG [Percocet 7.5-325 mg] 1 tab PO Q4HR PRN #42 tab PRN Reason: Pain Continue Dicyclomine [Bentyl] 20 mg PO TID PRN PRN Reason: IBS No Action Prochlorperazine [Compazine] 10 mg PO Q6H PRN PRN Reason: Nausea Docusate [Colace] 100 mg PO BID #60 capsule HYDROcodone/APAP 7.5-325MG [[place] 7.5-325] 1 tab PO Q4-6H PRN PRN Reason: Pain Discharge Medication List Dicyclomine [Bentyl] 20 mg PO TID PRN 07/05/23 [History] Prochlorperazine [Compazine] 10 mg PO Q6H PRN 07/05/23 [History] Docusate [Colace] 100 mg PO BID #60 capsule 07/09/23 [Rx] HYDROcodone/APAP 7.5-325MG [[place] 7.5-325] 1 tab PO Q4-6H PRN 09/07/23 [History] Docusate [Colace] 100 mg PO BID #60 capsule 09/16/23 [Rx] Doxycycline Hyclate 100 mg PO BID #10 tab 09/16/23 [Rx] Ondansetron [Zofran] 4 mg PO Q8HR PRN #21 tab 09/16/23 [Rx] Cyclobenzaprine [Flexeril] 5 mg PO TID PRN #21 tab 09/17/23 [Rx] oxyCODONE-APAP 7.5-325MG [Percocet 7.5-325 mg] 1 tab PO Q4HR PRN #42 tab 09/17/23 [Rx] Follow up Appointment(s)/Referral(s): Jah Herrera MD [Primary Care Provider] - 1 Week Lukas Roldan MD [STAFF PHYSICIAN] - 10 Days Patient Instructions/Handouts: How to Use an Incentive Spirometer (DC), Joint Replacement Surgery (DC) Activity/Diet/Wound Care/Special Instructions: maintain sling take meds as directed f/u in office non weightbearing may shower in 3 days if no bleeding
[2023-09-17] MEDS: oxyCODONE-APAP 7.5-325MG 1 EACH TAB PO PRN ×2 (16:57→22:22)
[2023-09-17] MEDS: SENNOSIDES-DOCUSATE SODIUM 1 EACH TAB PO PRN (16:57)
--- NOTE | 2023-09-17 17:00 | P.PN ---
Subjective Progress Note Date: 09/17/23 (delayed charting seen at 1135) Patient is a 78-year-old male with known IBS diarrhea prone, irritable bowel syndrome, and osteoarthritis who presented to the hospital for right total shou lder arthroplasty. Patient seen and examined at bedside. He reports that his blocks suddenly wore off last evening and had excruciating pain requiring multiple doses of narcotic medications, msucle relaxors, and benadryl for sleep. He is very concerned about his pain. He struggled with constipation after his last shoulder Vital signs reviewed General: nontoxic, no distress, appears at stated age Cardiovascular: S1S2 reg, no murmur, positive posterior tibial pulse bilateral, Lungs: CTA bilateral, no rhonchi, no rales , no accessory muscle use Ext: no gross muscle atrophy, no edema b/l lower extremities, no contractures, right shoulder in sling. Neuro: CN II-XI grossly intact, no focal neuro deficits Psych: Alert, oriented, appropriate affect Assessment/Plan: 78 yo male s/p Right totoal should Intractable pain - patient would like percocect for discharge. I asked him to discuss that plan with ortho. We did discuss how addictive percocet can be. Constipation - he is requesting colace. Colace 100 mg BID ordered IBD - Resume Bentyl 20 mg TID prn Insopmnia - d/c Benadryl due to advanced age and risk of falls in conjunction with ba clofen, dilaudid, and percocet - melatonin 5 mg PO HS Data Review: Labs reviewed with hemoglobin 11.8 andThank you for allowing us to participate in the care of this pleasant patient. Do not hesitate to contact us with questions. Someone can be reached from the [facility] hospitalist group all hours of the day at [phone] or via perfect serve. This dictation was prepared using [employer] voice recognition software. Though every attempt is made to correct errors during dictation some may still exist. Objective - Vital Signs Vital signs: Vital Signs Temp 97.9 F 09/17/23 00:17 Pulse 71 09/17/23 06:53 Resp 18 09/17/23 06:53 BP 150/66 09/17/23 06:53 Pulse Ox 96 09/17/23 06:53 FiO2 Intake & Output 09/16/23 09/17/23 09/17/23 18:59 06:59 18:59 Intake Total 1151 Output Total 100 Balance 1051 Weight 78 kg Intake: IV 1151 Output: Estimated Blood Loss 100 Other: Voiding Method Toilet # Voids 2 2 - Labs CBC & Chem 7: 09/17/23 05:36 09/17/23 05:41 Labs: Abnormal Lab Results - Last 24 Hours (Table) 09/17/23 09/17/23 Range/Units 05:36 05:41 RBC 4.00 L (4.40-5.60) X 10*6/uL Hgb 11.8 L (13.0-17.0) g/dL Hct 36.6 L (39.6-50.0) % Glucose 127 H (70-110) mg/dL
[2023-09-17] MEDS: DOCUSATE 100 MG CAP PO SCH (20:20)
[2023-09-17] MEDS: MELATONIN 5 MG TABLET PO SCH (20:20)
[2023-09-18] MEDS: LACTATED RINGERS 1,000 ML IV SCH ×3 (01:02→15:20)
[2023-09-18] MEDS: HYDROmorphone 0.5 MG/0.5 ML SYRINGE IVP PRN ×2 (01:11→06:21)
[2023-09-18] MEDS: oxyCODONE-APAP 7.5-325MG 1 EACH TAB PO PRN ×4 (04:23→20:23)
[2023-09-18] MEDS: DOCUSATE 100 MG CAP PO SCH ×2 (08:46→20:23)
--- NOTE | 2023-09-18 10:25 | P.DS ---
Providers Date of admission: 09/17/23 07:31 Expected date of discharge: 09/18/23 Attending physician: Lukas Roldan Consults: 09/16/23 08:20 Consult Physician Routine Consulting Provider: Carlota Garza Consult Reason/Comments: post op medical management Do you want consulting provider notified?: Yes Primary care physician: Jah Herrera MD - Discharge Diagnosis(es) (1) Status post reverse total shoulder replacement Current Visit: Yes Status: Acute (2) Primary osteoarthritis, right shoulder Current Visit: Yes Status: Acute Priority: Medium Hospital Course: This is an 78-year-old male with a known history of degenerative arthritis of the right shoulder. The patient presented for evaluation as an outpatient. After discussion and consideration patient elects to proceed with reverse total shoulder arthroplasty. The patient is seen preoperatively by Dr. Roldan and medically cleared for surgery by their primary care physician. Patient is admitted to [facility] on 09/16/2023 for reverse total shoulder arthroplasty. The procedure is performed without complication or sequelae. The patient is doing well postoperatively. Labs and vital signs are stable on day of discharge. On day of discharge the patient's shoulder incision is healing well. There is minimal erythema. There is no drainage noted at this time. There is minimal soft tissue swelling to the shoulder. Patient has full hand and wrist motion without difficulty or pain. Neurovascular status to the right upper extremity is intact. Patient is discharged home in good condition. Please see med rec for accurate list of home medications. Patient Condition at Discharge: Good Plan - Discharge Summary Discharge Rx Participant: No New Discharge Prescriptions: New Cyclobenzaprine [Flexeril] 5 mg PO TID PRN #21 tab PRN Reason: Spasms Ibuprofen 600 mg PO Q8H PRN #90 tab PRN Reason: Pain Docusate [Colace] 100 mg PO BID #60 capsule Doxycycline Hyclate 100 mg PO BID #10 tab Ondansetron [Zofran] 4 mg PO Q8HR PRN #21 tab PRN Reason: Nausea oxyCODONE-APAP 7.5-325MG [Percocet 7.5-325 mg] 1 tab PO Q4HR PRN #42 tab PRN Reason: Pain Continue Dicyclomine [Bentyl] 20 mg PO TID PRN PRN Reason: IBS No Action Prochlorperazine [Compazine] 10 mg PO Q6H PRN PRN Reason: Nausea Docusate [Colace] 100 mg PO BID #60 capsule HYDROcodone/APAP 7.5-325MG [[place] 7.5-325] 1 tab PO Q4-6H PRN PRN Reason: Pain Discharge Medication List Dicyclomine [Bentyl] 20 mg PO TID PRN 07/05/23 [History] Prochlorperazine [Compazine] 10 mg PO Q6H PRN 07/05/23 [History] Docusate [Colace] 100 mg PO BID #60 capsule 07/09/23 [Rx] HYDROcodone/APAP 7.5-325MG [[place] 7.5-325] 1 tab PO Q4-6H PRN 09/07/23 [History] Docusate [Colace] 100 mg PO BID #60 capsule 09/16/23 [Rx] Doxycycline Hyclate 100 mg PO BID #10 tab 09/16/23 [Rx] Ondansetron [Zofran] 4 mg PO Q8HR PRN #21 tab 09/16/23 [Rx] Cyclobenzaprine [Flexeril] 5 mg PO TID PRN #21 tab 09/17/23 [Rx] oxyCODONE-APAP 7.5-325MG [Percocet 7.5-325 mg] 1 tab PO Q4HR PRN #42 tab 09/17/23 [Rx] Ibuprofen 600 mg PO Q8H PRN #90 tab 09/18/23 [Rx] Follow up Appointment(s)/Referral(s): Jah Herrera MD [Primary Care Provider] - 1 Week Lukas Roldan MD [STAFF PHYSICIAN] - 10 Days Patient Instructions/Handouts: How to Use an Incentive Spirometer (DC), Joint Replacement Surgery (DC) Activity/Diet/Wound Care/Special Instructions: maintain sling take meds as directed f/u in office non weightbearing may shower in 3 days if no bleeding Discharge Disposition: HOME SELF-CARE
--- NOTE | 2023-09-18 15:31 | P.PN ---
Subjective Progress Note Date: 09/18/23 Hospital course: Patient is a pleasant 78-year-old male with a past medical history of IBS diarrhea prone, irritable bowel syndrome, and osteoarthritis. He is currently admitted to the hospital under orthopedic surgery team status post elective right total shoulder arthroplasty. We have been consulted for medical management throughout patient's hospitalization and management of patient's intractable pain and current concerns of constipation. Physical exam: Vital signs reviewed and stable. General: Nontoxic, no distress and appears stated age. Derm: Skin warm and dry, normal coloration for ethnicity. Head: Atraumatic, normocephalic and symmetric. Eyes: EOMs intact, no lid lag, and anicteric sclera Mouth: no lip lesions, mucus membranes moist Cardiovascular: regular rate and rhythm with normal S1S2, no murmur, positive posterior tibial pulses bilaterally, and cap refill < 2 seconds. Lungs: Respirations even, regular, and unlabored on room air. Lungs CTA bilater ally, no rhonchi, no rales, no wheezing, and no accessory muscle usage. Abdominal: soft, nontender to palpation, no guarding, no appreciable organomegaly Ext:. No gross muscle atrophy, no edema, no contractures. Movement and sensation intact. Patient denies numbness or tingling in right hand or fingers. Right arm in sling. Neuro: Speech clear, face symmetrical and CN II-XII grossly intact with no noted focal neuro deficits Psych: Alert and oriented to person, place, time, and situation. Appropriate and pleasant affect. Assessment and Plan of Care: Acute postoperative blood loss anemia Hemoglobin 11.8 with preoperative hemoglobin of 13.7. This is a stable and expected finding. No need for transfusion or any other interventions or further testing at this time. Intractable pain -Patient reports better managed this morning. Constipation -Continue docusate 100 mg twice daily. Inflammatory bowel disease -Continue Bentyl 20 mg 3 times daily as needed. Insomnia -Recommend continuation of melatonin 5 mg nightly. Status post right total shoulder arthroplasty -Management per primary admitting orthopedic surgery team including DVT prophylaxis, wound/dressing care, management of weightbearing and increase activity of right arm, and direction/management of when and how long to use sling. Data and imaging reviewed: Vital signs reviewed. Blood pressure 138/81, heart rate 69, respiratory rate 18, temp 99.1F, SpO2 of 95% on room air. Medically, patient is optimized for discharge once postsurgical pain is adequately controlled and he is cleared by primary admitting orthopedic surgery team. Thank you for allowing us to participate in the care of this pleasant patient. Do not hesitate to contact us with questions. Someone can be reached from the [facility] hospitalist group all hours of the day at [phone] or via [employer]. Patient was seen independently by Nurse Pracitioner. This document was prepared using [employer] dictation software. Please allow for errors in naval aircrew[employer] helicopter, while rare they do occur. Objective - Vital Signs Vital signs: Vital Signs Temp 98.9 F 09/18/23 01:01 Pulse 74 09/18/23 01:01 Resp 16 09/18/23 01:01 BP 130/80 09/18/23 01:01 Pulse Ox 94 L 09/18/23 01:01 FiO2 Intake & Output 09/17/23 09/18/23 09/18/23 18:59 06:59 18:59 Other: Voiding Method Toilet Toilet # Voids 4 4 # Bowel Movements 0 - Labs CBC & Chem 7: 09/17/23 05:36 09/17/23 05:41 Labs: Abnormal Lab Results - Last 24 Hours (Table) 09/17/23 Range/Units 05:41 Glucose 127 H (70-110) mg/dL
[2023-09-18] MEDS: MELATONIN 5 MG TABLET PO SCH (20:23)
[2023-09-18] MEDS: BACLOFEN 10 MG TAB PO PRN (23:18)
[2023-09-19] MEDS: oxyCODONE-APAP 7.5-325MG 1 EACH TAB PO PRN ×2 (05:43→10:48)
[2023-09-19 07:57] VITALS: BP 121/81; PULSE 79; RESP 18; TEMP 99.6
[2023-09-19] MEDS ORDERED: KETOROLAC 15 MG/ML 1 ML VIAL IVP PRN (08:06)
[2023-09-19] MEDS: DOCUSATE 100 MG CAP PO SCH (08:13)
--- NOTE | 2023-09-19 12:01 | P.PN ---
Subjective Progress Note Date: 09/19/23 Hospital course: Patient is a pleasant 78-year-old male with a past medical history of IBS diarrhea prone, irritable bowel syndrome, and osteoarthritis. He is currently admitted to the hospital under orthopedic surgery team status post elective right total shoulder arthroplasty. We have been consulted for medical management throughout patient's hospitalization and management of patient's intractable pain and current concerns of constipation. Physical exam: Agency and fully evaluated at the bedside this morning. Again visiting with . Patient reports he is doing much better than yesterday and reports currently he feels postoperative pain is much better controlled. Patient denies having any other questions, needs, complaints, or concerns. He is postoperative day 2 and appears to be doing well. Patient is medically optimized for discharge once cleared by primary admitting orthopedic surgery team. Vital signs reviewed and stable. General: Nontoxic, no distress and appears stated age. Derm: Skin warm and dry, normal coloration for ethnicity. Head: Atraumatic, normocephalic and symmetric. Eyes: EOMs intact, no lid lag, and anicteric sclera Mouth: no lip lesions, mucus membranes moist Cardiovascular: regular rate and rhythm with normal S1S2, no murmur, positive posterior tibial pulses bilaterally, and cap refill < 2 seconds. Lungs: Respirations even, regular, and unlabored on room air. Lungs CTA bilaterally, no rhonchi, no rales, no wheezing, and no accessory muscle usage. Abdominal: soft, nontender to palpation, no guarding, no appreciable org anomegaly Ext:. No gross muscle atrophy, no edema, no contractures. Movement and sensation intact. Patient denies numbness or tingling in right hand or fingers. Right arm in sling. Neuro: Speech clear, face symmetrical and CN II-XII grossly intact with no noted focal neuro deficits Psych: Alert and oriented to person, place, time, and situation. Appropriate and pleasant affect. Assessment and Plan of Care: Acute postoperative blood loss anemia Hemoglobin 11.8 with preoperative hemoglobin of 13.7. This is a stable and expected finding. No need for transfusion or any other interventions or further testing at this time. Intractable pain -Patient reports better managed this morning. Constipation -Continue docusate 100 mg twice daily. Inflammatory bowel disease -Continue Bentyl 20 mg 3 times daily as needed. Insomnia -Recommend continuation of melatonin 5 mg nightly. Status post right total shoulder arthroplasty -Management per primary admitting orthopedic surgery team including DVT prophylaxis, wound/dressing care, management of weightbearing and increase activity of right arm, and direction/management of when and how long to use sling. Data and imaging reviewed: Vital signs reviewed. Blood pressure 121/81, heart rate 79, respiratory rate 18, temperature 99.6F, SpO2 of 93% on room air. Medically, patient is optimized for discharge once cleared by primary admitting orthopedic surgery team. Thank you for allowing us to participate in the care of this pleasant patient. Do not hesitate to contact us with questions. Someone can be reached from the [facility] hospitalist group all hours of the day at [phone] or via [employer]. Patient was seen independently by Nurse Pracitioner. This document was prepared using [employer] dictation software. Please allow for errors in scarifier operator, while rare they do occur. Objective - Vital Signs Vital signs: Vital Signs Temp 99.6 F 09/19/23 06:56 Pulse 79 09/19/23 06:56 Resp 18 09/19/23 06:56 BP 121/81 09/19/23 06:56 Pulse Ox 93 L 09/19/23 06:56 FiO2 Intake & Output 09/18/23 09/19/23 09/19/23 18:59 06:59 18:59 Other: # Voids 4 5 # Bowel Movements 0 - Labs CBC & Chem 7: 09/17/23 05:36 09/17/23 05:41
== END 2023-09-19 11:49 | disposition home or self-care (01) ==
LOC: OR 06:47 → 4SSUR 10:37 → OR 09-17 07:31 → 4SSUR 09-17 07:31
PROVIDERS: ADMIT Orthopaedic Surgery Sports Medicine; ATTEND Orthopaedic Surgery Sports Medicine
DX: M19.011 Primary osteoarthritis, right shoulder (principal); D62 Acute posthemorrhagic anemia; K58.2 Mixed irritable bowel syndrome; K21.9 Gastro-esophageal reflux disease without esophagitis; G47.00 Insomnia, unspecified; Z79.899 Other long term (current) drug therapy; Z85.46 Personal history of malignant neoplasm of prostate; Z87.442 Personal history of urinary calculi; Z85.828 Personal history of other malignant neoplasm of skin; Z96.612 Presence of left artificial shoulder joint; Z96.653 Presence of artificial knee joint, bilateral; Z90.79 Acquired absence of other genital organ(s); Z98.890 Other specified postprocedural states; Z80.3 Family history of malignant neoplasm of breast
CPT/HCPCS: 23472; 64415; 80048; 85025; 73020; G0378 ×3; C1776; J2250; J3370; J0330; J2710; J0690 ×3; J2405; J2001; J3010; J2795; J1885; J2704; J1170 ×3

== ENCOUNTER → 2023-09-30 | Outpatient (CLI) | payer MEDICARE ==
--- NOTE | 2023-09-30 11:46 | US ---
EXAMINATION TYPE: US venous doppler duplex LE DATE OF EXAM: 09/30/2023 11:39 AM COMPARISON: NONE CLINICAL INDICATION: Male, 78 years old with history of M79.89 OTHER SPECIFIED SOFT TISSUE DISORDERS; Bilateral leg swelling x few months. Recent shoulder surgery Jun and Aug 2023. Not on blood thinn ers. SIDE PERFORMED: Bilateral TECHNIQUE: The lower extremity deep venous system is examined utilizing real time linear array sonog nisreen with graded compression, doppler sonography and color-flow sonography. VESSELS IMAGED: Common Femoral Vein Deep Femoral Vein Greater Saphenous Vein * Femoral Vein Popliteal Vein Small Saphenous Vein * Proximal Calf Veins (* superficial vessels) Right Leg: Negative for DVT Left Leg: Negative for DVT IMPRESSION: Grayscale, color doppler, spectral doppler imaging performed of the deep veins of the lo wer extremities. There is normal flow, compressibility, vascular waveforms.
== END | disposition home or self-care (01) ==
LOC: RADUSWWP 10:39
PROVIDERS: ATTEND Internal Medicine
DX: M79.89 Other specified soft tissue disorders (principal)
CPT/HCPCS: 93970

== ENCOUNTER → 2024-02-03 | Outpatient (CLI) | payer MEDICARE | END | disposition home or self-care (01) | LOC: LABWHC1 11:44 | PROVIDERS: ATTEND Urology | DX: C61 Malignant neoplasm of prostate (principal) | CPT/HCPCS: 36415; 84153 ==

== ENCOUNTER → 2024-04-19 | Outpatient (CLI) | payer MEDICARE ==
[2024-04-19 10:45] LABS: Basophils # (A) 0.05 X 10*3/uL (0.00-0.10); Eosinophils # (A) 0.14 X 10*3/uL (0.04-0.35); Eosinophils % (A) 2.9 %; HCT 42.3 % (39.6-50.0); HGB 13.7 g/dL (13.0-17.0); Lymphocytes # (A) 1.46 X 10*3/uL (0.90-5.00); Lymphocytes % (A) 30.4 %; MCHC 32.4 g/dL (32.0-37.0); MCV 92.6 FL (80.0-97.0); Mean Platelet Volume 10.1 FL (9.5-12.2); Monocytes # (A) 0.48 X 10*3/uL (0.20-1.00); NRBC Per 100 WBC 0 X 10*3/uL (0.00-0.01); Neutrophils # (A) 2.67 X 10*3/uL (1.80-7.70); Neutrophils % (A) 55.5 %; Platelet Count 199 X 10*3/uL (140-440); RBC 4.57 X 10*6/uL (4.40-5.60); RDW 13.5 % (11.5-14.5); WBC 4.81 X 10*3/uL (4.50-10.00)
[2024-04-19 11:03] LABS: Chol/HDL Ratio 3.92 Ratio; LDL Cholesterol,Calculated 75.9 mg/dL (0.0-131.0); Magnesium 1.9 mg/dL (1.5-2.4)
[2024-04-19 11:04] LABS: ALT 18 U/L (10-49); AST 19 U/L (14-35); Albumin 4.1 g/dL (3.8-4.9); Albumin/Globulin Ratio 2.05 Ratio (1.60-3.17); Alkaline Phosphatase 93 U/L (41-126); Blood Urea Nitrogen 25.2 mg/dL (9.0-27.0); Calcium 9.3 mg/dL (8.7-10.3); Carbon Dioxide 26.3 mmol/L (21.6-31.8); Chloride 108 mmol/L (96-109); Glucose 97 mg/dL (70-110); Potassium 4.6 mmol/L (3.5-5.5); Sodium 144 mmol/L (135-145); Total Bilirubin 0.6 mg/dL (0.3-1.2); Total Protein 6.1 g/dL (6.2-8.2)
== END | disposition home or self-care (01) ==
LOC: LABWHC1 07:41
PROVIDERS: ATTEND Internal Medicine
DX: E78.5 Hyperlipidemia, unspecified (principal)
CPT/HCPCS: 36415; 80053; 80061; 83735; 84443; 85025

== ENCOUNTER → 2024-05-03 | Outpatient (CLI) | payer MEDICARE ==
--- NOTE | 2024-05-03 15:50 | US ---
EXAMINATION TYPE: US kidneys/renal and bladder DATE OF EXAM: 05/03/2024 COMPARISON: CT CLINICAL INDICATION: Male, 78 years old with history of N28.9 DISORDER OF KIDNEY; Abnormal labs, h/o renal stones EXAM MEASUREMENTS: Right Kidney: 12.0 x 5.6 x 5.7 cm Left Kidney: 12.2 x 5.3 x 3.8 cm Right Kidney: No evidence of hydro, probable renal calculi scattered throughout kidney, largest at up per pole= 6mm Left Kidney: No evidence of hydro, probable renal calculi scattered throughout kidney, largest mid/me dial= 6mm, small cyst upper pole= 9mm in size Bladder: wnl Bilateral Jets seen: No There is no evidence for hydronephrosis at this point in time. No The urinary bladder is anechoic. Bilateral ureteral jets are seen. IMPRESSION: Nonobstructing nephrolithiasis bilaterally. Small simple cysts left kidney.
== END | disposition home or self-care (01) ==
LOC: RADUSWWP 15:21
PROVIDERS: ATTEND Internal Medicine
DX: N28.9 Disorder of kidney and ureter, unspecified (principal); N20.0 Calculus of kidney
CPT/HCPCS: 76770

== ENCOUNTER → 2024-09-12 | Outpatient (CLI) | payer MEDICARE ==
[2024-09-12 17:23] LABS: Appearance,Urine Clear (Clear); Bilirubin,Urine Negative (Negative); Blood,Urine Negative (Negative); Color,Urine Colorless; Glucose,Urine (UA) Negative (Negative); Ketones,Urine Negative (Negative); Leukocyte Esterase,Urine Negative (Negative); Nitrite,Urine Negative (Negative); PH, Urine 5.5 (5.0-8.0); Protein,Urine Negative (Negative); Specific Gravity,Urine 1.021 (1.001-1.035); Urobilinogen,Urine <2.0 mg/dL (<2.0)
[2024-09-12 17:47] LABS: ALT 13 U/L (4-49); AST 21 U/L (17-59); African American GFR (CKD) 60 (>60 ml/min/1.73 sqM); Albumin 3.7 g/dL (3.5-5.0); Albumin/Globulin Ratio 1.5; Alkaline Phosphatase 77 U/L (38-126); Amylase 99 U/L (30-110); Anion Gap 6 mmol/L; Blood Urea Nitrogen 24 mg/dL (9-20); Calcium 9.1 mg/dL (8.4-10.2); Carbon Dioxide 22 mmol/L (22-30); Chloride 113 mmol/L (98-107); Globulin 2.5 g/dL; Glucose 83 mg/dL (74-99); Lipase 87 U/L (23-300); Non-African American GFR(CKD) 52 (>60 ml/min/1.73 sqM); Potassium 4.2 mmol/L (3.5-5.1); Sodium 141 mmol/L (137-145); Total Bilirubin 0.5 mg/dL (0.2-1.3); Total Protein 6.2 g/dL (6.3-8.2)
--- NOTE | 2024-09-12 18:24 | CT ---
EXAMINATION TYPE: CT abdomen pelvis w con DATE OF EXAM: 09/12/2024 6:10 PM COMPARISON: Previous CT abdomen/pelvis 02/10/2023. CLINICAL INDICATION: Male, 79 years old with history of R10.31; RLQ abdominal pain x 6 weeks TECHNIQUE: Axial CT abdomen pelvis w con;Sagittal and coronal reformats were created on a separate w orkstation. Contrast used:80 mL of Isovue 370 with IV Contrast, (none if empty) Oral contrast used: without Oral Contrast (none if empty) CT DLP: 1497 mGycm, Automated exposure control for dose reduction was used. FINDINGS: Study limited due to patient positioning/streak artifact from overlying extremities. LOWER CHEST: Unremarkable ABDOMEN LIVER: Unremarkable GALLBLADDER AND BILE DUCTS: Cholelithiasis. No definite abnormal biliary ductal dilatation. PANCREAS: Unremarkable. SPLEEN: Unremarkable. ADRENAL GLANDS: Unremarkable. KIDNEYS AND URETERS: Bilateral renal parenchymal atrophy. Bilateral nonobstructing renal calculi. No hydronephrosis. No suspicious enhancing renal mass. PELVIS BLADDER: No evidence for wall thickening or mass given limitations of exam. REPRODUCTIVE: Unremarkable. ABDOMEN & PELVIS STOMACH AND BOWEL: Stomach is unremarkable. Duodenal diverticulum noted. Scattered diverticula are no nalini throughout the colon. No evidence of bowel obstruction. PERITONEUM/RETROPERITONEUM: No evidence of pneumoperitoneum or free fluid. VASCULATURE: No evidence of aortic aneurysm. MUSCULOSKELETAL: No acute osseous abnormalities LYMPH NODES: No gross evidence for lymphadenopathy. SOFT TISSUE/ABDOMINAL WALL: Unremarkable IMPRESSION: No acute abnormality in the abdomen/pelvis or CT findings to explain reported symptoms. [facility], , 09/12/2024 6:21 PM
[2024-09-13 02:40] LABS: Basophils # (A) 0.08 X 10*3/uL (0.00-0.10); Basophils % (A) 1.4 %; Eosinophils # (A) 0.15 X 10*3/uL (0.04-0.35); Eosinophils % (A) 2.7 %; HCT 41.6 % (39.6-50.0); HGB 13.4 g/dL (13.0-17.0); Lymphocytes # (A) 1.85 X 10*3/uL (0.90-5.00); Lymphocytes % (A) 32.7 %; MCH 29.6 pg (27.0-32.0); MCHC 32.2 g/dL (32.0-37.0); Mean Platelet Volume 10.2 FL (9.5-12.2); Monocytes # (A) 0.51 X 10*3/uL (0.20-1.00); NRBC Per 100 WBC 0 X 10*3/uL (0.00-0.01); Neutrophils # (A) 3.05 X 10*3/uL (1.80-7.70); Platelet Count 251 X 10*3/uL (140-440); RBC 4.52 X 10*6/uL (4.40-5.60); RDW 13.8 % (11.5-14.5); WBC 5.65 X 10*3/uL (4.50-10.00)
== END | disposition home or self-care (01) ==
LOC: RADCTMAIN 15:48
PROVIDERS: ATTEND Internal Medicine
DX: R10.31 Right lower quadrant pain (principal)
CPT/HCPCS: 80053; 82150; 83690; 85025; 81003; 74177; Q9967

== ENCOUNTER → 2024-09-26 | Outpatient (CLI) | payer MEDICARE ==
--- NOTE | 2024-09-26 15:12 | XR ---
EXAMINATION TYPE: XR chest 2V DATE OF EXAM: 09/26/2024 3:04 PM COMPARISON: Chest radiographs from 05/15/2013 TECHNIQUE: XR chest 2V Frontal and lateral views of the chest. CLINICAL INDICATION:Male, 79 years old with history of R05.1; FINDINGS: Lungs/Pleura: There is no evidence of pleural effusion, focal consolidation, or pneumothorax. Pulmonary vascularity: Unremarkable. Heart/mediastinum: Cardiomediastinal silhouette is unremarkable. Atherosclerotic calcifications are seen in the aorta. Musculoskeletal: Multiple level degenerative disc disease changes seen throughout the spine. Bilatera l shoulder arthroplasty changes. IMPRESSION: No acute cardiopulmonary disease/process. [facility], , 09/26/2024 3:09 PM
== END | disposition home or self-care (01) ==
LOC: RADXRMAIN 14:43
PROVIDERS: ATTEND Internal Medicine
DX: R05.1 Acute cough (principal)
CPT/HCPCS: 71046

== ENCOUNTER → 2024-12-14 | Outpatient (CLI) | payer MEDICARE ==
--- NOTE | 2024-12-14 20:40 | XR ---
EXAMINATION TYPE: XR chest 2V DATE OF EXAM: 12/14/2024 4:35 PM COMPARISON: Chest x-ray September 26, 2024. CLINICAL INDICATION: Male, 79 years old with history of J45.909 ASTHMATIC BRONCHITIS, TECHNIQUE: Frontal and lateral views of the chest are obtained. FINDINGS: There is no focal air space opacity, pleural effusion, or pneumothorax seen. The cardiac silhouette size is stable and upper limits of normal. Surgical change bilateral shoulders is partiall y imaged. IMPRESSION: No acute cardiopulmonary process. [facility], , 12/14/2024 8:38 PM
== END | disposition home or self-care (01) ==
LOC: RADXRMAIN 16:16
PROVIDERS: ATTEND Internal Medicine
DX: J45.909 Unspecified asthma, uncomplicated (principal)
CPT/HCPCS: 71046

== ENCOUNTER → 2025-05-02 | Outpatient (CLI) | payer MEDICARE ==
[2025-05-02 15:19] LABS: Basophils # (A) 0.08 X 10*3/uL (0.00-0.10); Basophils % (A) 1.1 %; Eosinophils # (A) 0.09 X 10*3/uL (0.04-0.35); Eosinophils % (A) 1.3 %; HCT 42.3 % (39.6-50.0); HGB 13.1 g/dL (13.0-17.0); Immature Grans, Automated 0.40 %; Lymphocytes # (A) 2.09 X 10*3/uL (0.90-5.00); Lymphocytes % (A) 29.9 %; MCH 29.2 pg (27.0-32.0); MCHC 31.0 g/dL (32.0-37.0); MCV 94.4 FL (80.0-97.0); Monocytes # (A) 0.56 X 10*3/uL (0.20-1.00); Monocytes % (A) 8.0 %; NRBC Per 100 WBC 0 X 10*3/uL (0.00-0.01); Neutrophils # (A) 4.13 X 10*3/uL (1.80-7.70); Neutrophils % (A) 59.3 %; Platelet Count 267 X 10*3/uL (140-440); RBC 4.48 X 10*6/uL (4.40-5.60); RDW 13.8 % (11.5-14.5); WBC 6.98 X 10*3/uL (4.50-10.00)
[2025-05-02 15:43] LABS: ALT 19 U/L (10-49); AST 19 U/L (14-35); Albumin 3.9 g/dL (3.8-4.9); Albumin/Globulin Ratio 1.70 Ratio (1.60-3.17); Alkaline Phosphatase 81 U/L (41-126); Anion Gap 9.40 mmol/L (4.00-12.00); BUN/Creat Ratio 20.08 Ratio (12.00-20.00); Blood Urea Nitrogen 24.1 mg/dL (9.0-27.0); Calcium 9.2 mg/dL (8.7-10.3); Carbon Dioxide 24.6 mmol/L (21.6-31.8); Chloride 110 mmol/L (96-109); Cholesterol 134.00 mg/dL (0.00-200.00); Globulin 2.3 g/dL (1.6-3.3); Glucose 95 mg/dL (70-110); HDL Cholesterol 31.70 mg/dL (40.00-60.00); LDL Cholesterol,Calculated 88.8 mg/dL (0.0-131.0); Potassium 4.5 mmol/L (3.5-5.5); Sodium 144 mmol/L (135-145); Total Protein 6.2 g/dL (6.2-8.2); Triglycerides 67.30 mg/dL (0.00-149.00); VLDL Calculation 13.46 mg/dL (5.00-40.00)
[2025-05-02 15:52] LABS: PSA Annual Screen <0.014 ng/mL (0.000-4.000)
== END | disposition home or self-care (01) ==
LOC: LABWHC1 08:29
PROVIDERS: ATTEND Internal Medicine
DX: Z00.00 Encounter for general adult medical examination without abnormal findings (principal); Z12.5 Encounter for screening for malignant neoplasm of prostate; Z85.46 Personal history of malignant neoplasm of prostate
CPT/HCPCS: 80061; 80053; 84443; 85025; 36415; G0103

== ENCOUNTER → 2025-05-17 | Outpatient (CLI) | payer MEDICARE ==
--- NOTE | 2025-05-18 11:13 | MR ---
INDICATION: Patient age:Male; 80 years old; Reason for study: M54.59 OTHER LOW BACK PAIN; PHH. COMPARISONS: MRI lumbar spine 01/27/2016, 12/29/2013. TECHNIQUE: Multi planar, multi sequence imaging was performed utilizing: T1-weighted, T2-weighted, a nd turbo inversion recovery imaging of the lumbar spine. The patient was not given contrast. FINDINGS: The lumbar vertebral bodies do have preserved heights. Grade 1 retrolisthesis of L2 on L3 and grade 1 anterolisthesis L4 on L5 without evidence of pars defects. Type I Modic changes involving the superior endplate of the L3 vertebral body. Mildly levoscoliotic curvature of the lumbar spine w ith apex at L3. Multilevel anterior anterior osteophytosis. Multilevel disc desiccation is present. The conus medullaris and the distal spinal cord do appear unremarkable with regards to their signal i ntensity and morphology. T12-L1: No significant disc pathology. No spinal canal or neural foraminal stenosis. L1-L2: Minimal broad-based disc bulge. Ligamentum flavum buckling and bilateral facet arthropathy. M inimal spinal canal stenosis. Mild to moderate left and mild right neural foraminal stenosis. L2-L3: Mild broad-based disc bulge with ligamentum flavum buckling and bilateral facet arthropathy. Mild spinal canal stenosis. Moderate right neural foraminal stenosis. The left neural foramen is hinton nt.. L3-L4: No significant disc pathology. Ligamentum flavum buckling and bilateral facet arthropathy. No significant spinal canal stenosis. The left neural foramen is patent. Moderate right neural foramina l stenosis. L4-L5: Grade 1 anterolisthesis with uncovering the disc. Broad-based disc bulge with ligamentum flavu m buckling and bilateral facet arthropathy. Resultant moderate spinal canal stenosis. Moderate right and mild left neural foraminal stenosis. L5-S1: Minimal disc bulge. No significant spinal canal stenosis. Bilateral facet arthropathy. Mild le ft neural foraminal stenosis. The right neural foramen is patent. 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 IMPRESSION: 1. Multilevel disc degeneration with associated osteoarthritic changes as described above. Most prono unced at L4-L5 with moderate spinal canal stenosis. 2. Grade 1 retrolisthesis of L2 on L3 and grade 1 anterolisthesis L4 on L5 without evidence of pars d efects. 3. 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 4. 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 [facility], , 05/18/2025 11:11 AM
== END | disposition home or self-care (01) ==
LOC: RADMRIMAIN 15:44
PROVIDERS: ATTEND Orthopaedic Surgery Orthopaedic Surgery of the Spine
DX: M48.061 Spinal stenosis, lumbar region without neurogenic claudication (principal); M51.360 Other intervertebral disc degeneration, lumbar region with discogenic back pain only; M43.16 Spondylolisthesis, lumbar region; I72.3 Aneurysm of iliac artery; M41.86 Other forms of scoliosis, lumbar region
CPT/HCPCS: 72148